=== PATIENT | female | born 1975 | race Caucasian/White ===

== ENCOUNTER 2017-07-01 10:20 | Emergency (ER) | payer OTHER ==
[2017-07-01 11:31] VITALS: BP 148/86
--- NOTE | 2017-07-01 11:45 | UC ---
Throat Pain/Nasal Gabriele HPI - HPI Summary HPI Summary: Nasal congestion and pressure for two days. No fever. No prior sinus disease. - History of Current Complaint Chief Complaint: UCRespiratory Stated Complaint: SINUS Time Seen by Provider: 07/01/17 11:24 Hx Obtained From: Patient Hx Last Menstrual Period: 06/21/17 Onset/Duration: Gradual Onset, Lasting Days, Still Present Pain Intensity: 5 Cough: Nonproductive Associated Signs & Symptoms: Positive: Sinus Discomfort, Nasal Discharge. Negative: Dysphagia, Fever, Vomiting, Rash - Allergies/Home Medications Allergies/Adverse Reactions: Allergies Allergy/AdvReac Type Severity Reaction Status Date / Time Amoxicillin [From Augmentin] Allergy Hives Verified 07/01/17 11:27 Cephalexin [From Keflex] Allergy Hives Verified 07/01/17 11:27 Clavulanic Acid Allergy Hives Verified 07/01/17 11:27 [From Augmentin] Morphine Allergy Hallucinati Verified 07/01/17 11:27 ons Home Medications: Home Medications Citalopram TAB* [CeleXA TAB*] 40 mg PO DAILY 07/01/17 [History Confirmed ] PMH/Surg Hx/FS Hx/Imm Hx Previously Healthy: Yes - Surgical History Surgical History: Yes Surgery Procedure, Year, and Place: . lithotripsy - Family History Known Family History: Positive: Other - No related sinus family history. - Social History Alcohol Use: Rare Substance Use Type: None Smoking Status (MU): Never Smoked Tobacco Review of Systems ENT: Sinus Congestion All Other Systems Reviewed And Are Negative: Yes Physical Exam Triage Information Reviewed: Yes Appearance: Well-Appearing, No Pain Distress, Obese Vital Signs: Initial Vital Signs Temp 97.8 F 07/01/17 11:28 Pulse 80 07/01/17 11:28 Resp 18 07/01/17 11:28 BP 148/86 07/01/17 11:28 Pulse Ox 100 07/01/17 11:28 Vital Signs Reviewed: Yes Eyes: Positive: Conjunctiva Clear ENT: Positive: Pharynx normal, Nasal congestion, TMs normal, Uvula midline. Negative: TM dull, TM red, Tonsillar swelling, Tonsillar exudate, Trismus, Sinus tenderness Neck: Positive: Supple, Nontender, No Lymphadenopathy Respiratory: Positive: Lungs clear, Normal breath sounds, No respiratory distress, No accessory muscle use. Negative: Respiratory distress, Decreased breath sounds, Accessory muscle use, Crackles, Rhonchi, Stridor, Wheezing Cardiovascular: Positive: No Murmur, Pulses Normal Abdomen Description: Positive: Nontender, No Organomegaly, Soft. Negative: Distended, Guarding Musculoskeletal: Positive: Strength Intact, ROM Intact. Negative: No Edema Neurological: Positive: Alert, Muscle Tone Normal. Negative: Fatigued Psychological: Positive: Age Appropriate Behavior Skin: Negative: rashes Throat Pain/Nasal Course/Dx - Differential Dx/Diagnosis Provider Diagnoses: nasal viral rhinosinusitis. Discharge - Discharge Plan Condition: Good Disposition: HOME Prescriptions: DOXYcycline CAP(*) [DOXYcycline 100MG CAP(*)] 100 mg PO BID #20 cap Patient Education Materials: Sinusitis (ED) Referrals: Sandy Ogden MD [Primary Care Provider] - Additional Instructions: Focus on decongestants and sinus irrigation. If not better by day 10 then start antibiotic.
== END 2017-07-01 11:43 | disposition home or self-care (01) ==
LOC: UCCORT 10:20
DX: J32.8 Other chronic sinusitis (principal); E66.9 Obesity, unspecified; Z88.1 Allergy status to other antibiotic agents; Z88.5 Allergy status to narcotic agent
CPT/HCPCS: 99202; G0463

== ENCOUNTER 2018-03-31 11:02 | Emergency (ER) | payer OTHER ==
[2018-03-31 11:32] VITALS: BP 157/87
[2018-03-31] MEDS ORDERED: Ketorolac INJ* 60 MG/2 ML VIAL IM ONE (11:55)
--- NOTE | 2018-03-31 12:04 | UC ---
Back Pain HPI - HPI Summary HPI Summary: Pt presents with c/o of low back pain. Pt reports that she was lifting her 30lb child out of car seat yesterday and felt sudden onset of low back pain at ~ 10 am. Pt stated that she rested the rest of the day and took , flexeril and ibuprofen with no improvement - History of Current Complaint Chief Complaint: UCBackPain Stated Complaint: LOWER BACK PAIN Time Seen by Provider: 03/31/18 11:39 Hx Obtained From: Patient Hx Last Menstrual Period: 03/21/18 ?: No Onset/Duration: Sudden Onset, Lasting Hours Timing: Constant Severity Initially: Moderate Severity Currently: Moderate Pain Intensity: 8 Character: Dull, Aching, Stiffness Aggravating Factor(s): Movement Alleviating Factor(s): Rest, Position Associated Signs And Symptoms: Positive: Negative - Risk Factors AAA Risk Factors: Negative TAD Risk Factors: Negative Cauda Equina Risk Factors: Negative Epidural Abscess Risk Factors: Negative - Allergies/Home Medications Allergies/Adverse Reactions: Allergies Allergy/AdvReac Type Severity Reaction Status Date / Time amoxicillin [From Augmentin] Allergy Hives Verified 03/31/18 11:35 cephalexin [From Keflex] Allergy Hives Verified 03/31/18 11:35 clavulanic acid Allergy Hives Verified 03/31/18 11:35 [From Augmentin] morphine Allergy Hallucinati Verified 03/31/18 11:35 ons PMH/Surg Hx/FS Hx/Imm Hx Previously Healthy: Yes - Surgical History Surgical History: Yes Surgery Procedure, Year, and Place: lithotrypsy, 3x c-sections - Family History Known Family History: Positive: Cardiac Disease, Other - No related sinus family history. - Social History Occupation: Employed Full-time Lives: With Family Alcohol Use: Rare Substance Use Type: None Smoking Status (MU): Never Smoked Tobacco Have You Smoked in the Last Year: No - Immunization History Most Recent Influenza Vaccination: current Review of Systems Constitutional: Negative Skin: Negative Eyes: Negative ENT: Negative Respiratory: Negative Cardiovascular: Negative Gastrointestinal: Negative Genitourinary: Negative Motor: Decreased ROM - low back Neurovascular: Negative Musculoskeletal: Decreased ROM, Myalgia - low back Neurological: Negative Psychological: Negative Is Patient Immunocompromised?: No All Other Systems Reviewed And Are Negative: Yes Physical Exam Triage Information Reviewed: Yes Appearance: Pain Distress Vital Signs: Initial Vital Signs Temp 97.6 F 10/28/18 11:27 Pulse 69 03/31/18 11:27 Resp 16 03/31/18 11:27 BP 157/87 03/31/18 11:27 Pulse Ox 99 03/31/18 11:27 Vital Signs Reviewed: Yes Eye Exam: Normal ENT Exam: Normal Dental Exam: Normal Neck exam: Normal Respiratory Exam: Normal Cardiovascular Exam: Normal Musculoskeletal Exam: Normal Musculoskeletal: Positive: Strength Intact, ROM Intact, No Edema Neurological Exam: Normal Psychological Exam: Normal Skin Exam: Normal Back Pain Course/Dx - Course Course Of Treatment: pt was given 60 MG IM toradol at clinic and after 30 minutes pt repoted improvement of pain. I instructed the pt to not take another NSAID until at least 8 hours. Pt verbalized understanding and agreed to plan of care - Differential Dx/Diagnosis Differential Diagnosis/HQI/PQRI: Cauda Equina Syndrome, Herniated Disc, Strain Provider Diagnoses: low back strain Discharge - Sign-Out/Discharge Documenting (check all that apply): Patient Departure All imaging exams completed and their final reports reviewed: No Studies - Discharge Plan Condition: Stable Disposition: HOME Prescriptions: Cyclobenzaprine TAB* [Flexeril 10 MG TAB*] 10 mg PO TID PRN #21 tab PRN Reason: Pain predniSONE TAB* [Deltasone 20 MG TAB*] 20 mg PO DAILY #4 tab Patient Education Materials: Low Back Strain (ED), Acute Low Back Pain (ED), Lower Back Exercises (ED) Referrals: Sandy Ogden MD [Primary Care Provider] - If Needed - Billing Disposition and Condition Condition: STABLE Disposition: Home
== END 2018-03-31 12:37 | disposition home or self-care (01) ==
LOC: UCCORT 11:02
DX: S39.012A Strain of muscle, fascia and tendon of lower back, initial encounter (principal); Z88.0 Allergy status to penicillin; Z88.1 Allergy status to other antibiotic agents; Z88.5 Allergy status to narcotic agent; X50.9XXA Other and unspecified overexertion or strenuous movements or postures, initial encounter; Y92.9 Unspecified place or not applicable
CPT/HCPCS: 96372; 99212; G0463; J1885

== ENCOUNTER 2019-04-22 11:42 | Emergency (ER) | payer OTHER ==
--- OUTSIDE RECORDS SUMMARY | 2019-04-22 12:33 | XMS REPORT | Continuity of Care Document ---
:1975 External Reference #:[id number] Author Name Alix Bowen PA Address [address] [place] [address] Care Team Providers Name Role Phone Sandy Ogden MD - Internal Medicine Care Team Information Cold Mill Operator Courtney Tavera PA-C - Care Team Information Cold Mill Operator [phone] Physician Tow Motor Driver Problems Active Problems Provider Date Taking medication Babatunde Bauman M.D. Onset: 07/09/2017 Acute sinusitis Babatunde Bauman M.D. Onset: 07/09/2017 Acute bronchitis Babatunde Bauman M.D. Onset: 07/09/2017 Malaise and fatigue Babatunde Bauman M.D. Onset: 07/09/2017 Cough Babatunde Bauman M.D. Onset: 07/09/2017 Vitamin D deficiency Babatunde Bauman M.D. Onset: 07/23/2017 Difficulty breathing Babatunde Bauman M.D. Onset: 07/23/2017 Elevated blood-pressure reading Babatunde Bauman M.D. Onset: 10/05/2017 without diagnosis of hypertension Obstructive sleep apnea syndrome Babatunde Bauman M.D. Onset: 10/05/2017 Hyperlipidemia Babatunde Bauman M.D. Onset: 10/05/2017 Erythematous condition Babatunde Bauman M.D. Onset: 12/27/2017 Contact dermatitis Babatunde Bauman M.D. 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/2018 Rasheeda Blood coagulation disorder, Brandon Wu, Onset: 05/23/2018 categorized by value of screening M.DCat test Imaging of abdomen abnormal Avril SotomayortDO Onset: 06/12/2018 Generalized anxiety disorder Sandy Ogden MD Onset: 12/12/2018 Mild recurrent major depression Sandy Ogden MD Onset: 12/12/2018 Pure hyperglyceridemia Sandy Ogden MD Onset: 12/12/2018 Mixed hyperlipidemia Sandy Ogden MD Onset: 12/12/2018 Social History Type Date Description Comments Sex Unknown Tobacco Use Start: Unknown Never Smoked Cigarettes Smoking Status Reviewed: 03/31/19 Never Smoked Cigarettes ETOH Use Rarely consumes alcohol Tobacco Use Start: Unknown Patient has never smoked Allergies, Adverse Reactions, Alerts Active Allergies Reaction Severity Comments Date Butorphanol 03/06/2014 Augmentin hives 07/05/2016 Clavulanic Acid Hives 07/01/2017 Keflex hives 07/05/2016 Morphine halllucinations 07/05/2016 Stadol hallucinations 07/05/2016 Medications Active Medications SIG Qnty Indications Ordering Date Provider Prednisone 2 po daily 10tabs R51 Waylon, 03/31/2019 20mg Tablets MD Katya, PHD Alprazolam 1 by mouth three 30tabs Jennifer Obregon, 01/24/2019 0.25mg Tablets times a day as DIRECTOR OF STRATEGIC SOURCING needed for panic attack, mdd 3#, Reference #: [id number] Hydrocortisone Apply to abdomen 28.350gm L23.9 Sandy Ogden, 01/24/2019 1% Cream 2-3x a day Duloxetine HCL 1 by mouth daily 30caps F33.0 Waylon, 01/10/2019 20mg Caps MD Katya, DR Part PHD Vitamin D-3 1 by mouth every Unknown 1000Unit day Capsules Omeprazole 1 by mouth every Unknown 40mg Capsules day DR History Medications Buspirone HCL 1-2 po tid prn 30tabs Sandy Ogden MD 01/10/2019 - 5mg Tablets anxiety 01/24/2019 Citalopram Hydrobromide 1 tab by mouth 30tabs Sandy Ogden MD 2018 - every day 12/12/2018 10mg Tablets Bupropion Hydrochloride take 1 tablet by 30tabs Sandy Ogden MD 2018 - ER (XL) mouth every 10/17/2018 150mg Tablets ER morning 24HR Medications Administered in Office Medication SIG Qnty Indications Ordering Provider Date PPD Injection Family Nurse 01/21/2019 Immunizations Description No Information Available Vital Signs Date Vital Result Comment 03/31/2019 11:18am BP Systolic Sitting Right Arm 140 mmHg BP Diastolic Sitting Right Arm 88 mmHg Body Temperature 98.2 F Heart Rate 85 /min Respiratory Rate 18 /min Height 65 inches 5'5" Weight 236.00 lb BMI (Body Mass Index) 39.3 kg/m2 BSA (Body Surface Area) 2.12 m2 [place] body weight in kilograms 57 kg O2 % BldC Oximetry 97 % 01/24/2019 11:00am BP Systolic Sitting Left Arm 122 mmHg BP Diastolic Sitting Left Arm 64 mmHg Body Temperature 97.9 F Heart Rate 75 /min Respiratory Rate 18 /min Height 65 inches 5'5" Weight 230.00 lb BMI (Body Mass Index) 38.3 kg/m2 BSA (Body Surface Area) 2.10 m2 [place] body weight in kilograms 57 kg O2 % BldC Oximetry 98 % Results Test Date Facility Test Result H/L Range Note Platelet Count 01/17/2019 [facility] Platelet Count 221 10^3/uL Normal 150-450 [phone] Mean Platelet Volume 10.3 fL Normal 7.4-10.4 Inr/Protime 01/17/2019 [facility] Inr 0.99 Normal 0.82-1.09 5 [phone] Laboratory test 01/17/2019 [facility] Partial 32.2 Normal 26.0-38.0 finding [phone] Thrombo seconds Time PTT Ua RFX Micro & 12/16/2018 [facility] Urine Color YELLOW Yellow 2 Culture II [address] [place], [place] [id number] [phone] Urine Clarity CLEAR Clear Urine Glucose - Dipstick NEGATIVE mg/dL Negative Urine Bilirubin - Dipstick NEGATIVE Negative Urine Ketone NEGATIVE mg/dL Negative Urine Specific [place] <= 1.005 Low 1.010-1.030 Urine Blood NEGATIVE Negative Urine PH 6.0 Low 6.5-7.5 Urine Protein - Dipstick NEGATIVE mg/dL Negative Urine Urobilinogen - Dipstick 0.2 E.U./dL Normal 0.2-1.0 Urine Nitrite - Dipstick NEGATIVE Negative Urine Leuk Esterase NEGATIVE Negative Source: URINE, CLEAN CAT <SEE NOTE> 3 Urine Culture 12/16/2018 [facility] Urine Culture URETHRAL ANUSHKA [address] [place], [place] [id number] [phone] Quantity > 100,000 CFU/mL 4 LDL Cholesterol 12/10/2018 [facility] Cholesterol 166 mg/dL <200 5, 6 Profile [address] [place], [place] [id number] [phone] Triglycerides 236 mg/dL High <150 7 HDL Cholesterol 41 mg/dL >40 8 LDL-Cholesterol 78 mg/dL < 100 9 1 Standard intensity warfarin therapeutic range: 2.0-3.0 High intensity warfarin therapeutic range: 2.5-3.5 2 N23 3 URINE, CLEAN CATCH 4 > 100,000 CFU/mL 5 R19.7, E78.5 6 Reference Guidelines*: Desirable: ........... < 200 mg/dL Borderline High: ..... 200-239 mg/dL High: ................ >= 240 mg/dL * The National Cholesterol Education Program (NCEP) 7 Reference Guidelines*: Normal: ............. < 150 mg/dL Borderline High: .... 150-199 mg/dL High: ............... 200-499 mg/dL Very High: .......... > 500 mg/dL * Source: National Cholesterol Education Program (NCEP) 8 Reference Guidelines*: Low HDL: ..... < 40 mg/dL Normal: ..... 40-60 mg/dL Desirable: ... > 60 mg/dL *The National Cholesterol Education Program(NCEP) 9 Reference Guidelines*: Optimal:........... <100 mg/dL Near Optimal....... 100-129 mg/dL Borderline High.... 130-159 mg/dL High............... 160-189 mg/dL Very High.......... >=190 mg/dL * Source: National Cholesterol Education Program (NCEP) Procedures Date Code Description Status 02/11/2019 16393 Eye Exam Est Patient Comprehensive Completed 10/08/2018 57841 Brief Emotional/Behav Assessment W/ Scoring Doc Per Completed Standard Inst 06/04/2018 48424912 Mammogram Completed Medical Devices Description No Information Available Encounters Type Date Location Provider Dx Diagnosis Office Visit 03/31/2019 Primary Care Alix Bowen F41.9 Anxiety disorder, 11:15a Office H., PA unspecified R51 Headache Office Visit 01/24/2019 11:00a Primary Care Alix Bowen F43.0 Acute stress Office H., PA reaction L23.9 Allergic contact dermatitis, unspecified cause Z11.1 Encounter for screening for respiratory tuberculosis Office Visit 01/10/2019 3:15p Primary Care Jessi F33.0 Major depressive Office KAJAL Bradshaw disorder, recurrent, mild F43.0 Acute stress reaction Office Visit 12/12/2018 3:20p Primary Care Sandy Ogden F41.1 Generalized Office anxiety disorder F33.0 Major depressive disorder, recurrent, mild E78.1 Pure hyperglyceridemia D73.89 Other diseases of spleen N23 Unspecified renal colic R19.7 Diarrhea, unspecified R16.0 Hepatomegaly, not elsewhere classified K21.9 Gastro-esophageal reflux disease without esophagitis Office Visit 10/08/2018 2:40p Primary Care Sandy Ogden F41.1 Generalized Office anxiety disorder F33.0 Major depressive disorder, recurrent, mild D73.89 Other diseases of spleen E78.5 Hyperlipidemia, unspecified Assessments Date Code Description Provider 03/31/2019 F41.9 Anxiety disorder, unspecified Alix Bowen PA 03/31/2019 R51 Headache Alix Bowen, PA 02/11/2019 H52.4 Presbyopia Cody Oconnor MD 01/24/2019 F43.0 Acute stress reaction Alix Bowen, PA 01/24/2019 L23.9 Allergic contact dermatitis, unspecified Alix Bowen., PA cause 01/24/2019 Z11.1 Encounter for screening for respiratory Alix Bowen PA tuberculosis 01/21/2019 Z11.1 Encounter for screening for respiratory Zita Diallo MD tuberculosis 01/21/2019 Z11.1 Encounter for screening for respiratory Family Nurse tuberculosis 01/10/2019 F33.0 Major depressive disorder, recurrent, mild Alix Bowen PA 01/10/2019 F43.0 Acute stress reaction Alix Bowen PA 12/12/2018 F41.1 Generalized anxiety disorder Sandy Ogden MD 12/12/2018 F33.0 Major depressive disorder, recurrent, mild Sandy Ogden MD 12/12/2018 E78.1 Pure hyperglyceridemia Sandy Ogden MD 12/12/2018 D73.89 Other diseases of spleen Sandy Ogden MD 12/12/2018 N23 Unspecified renal colic Sandy Ogden MD 12/12/2018 R19.7 Diarrhea, unspecified Sandy Ogden MD 12/12/2018 R16.0 Hepatomegaly, not elsewhere classified Sandy Ogden MD 12/12/2018 K21.9 Gastro-esophageal reflux disease without Sandy Ogden MD esophagitis 10/08/2018 F41.1 Generalized anxiety disorder Sandy Ogden MD 10/08/2018 F33.0 Major depressive disorder, recurrent, mild Sandy Ogden MD 10/08/2018 D73.89 Other diseases of spleen Sandy Ogden MD 10/08/2018 E78.5 Hyperlipidemia, unspecified Sandy Ogden MD Plan of Treatment 02/11/2019 - Cody Oconnor MDH52.4 PresbyopiaComments:provided reading glasses+ 1.00 sph right eye+1.25 sph left eyeFollow up:please call with ? or concerns Functional Status Functional Condition Comment Date Status Independent with all ADL's Active Mental Status Description No Information Available Referrals Description No Information Available
[2019-04-22 12:41] VITALS: BP 133/75
--- NOTE | 2019-04-22 13:13 | UC ---
Throat Pain/Nasal Gabriele HPI - HPI Summary HPI Summary: Pt presents with c/o nasal congestion, sinus pressure pain X 1 week. - History of Current Complaint Chief Complaint: UCGeneralIllness Stated Complaint: SINUS COMPLAINT Time Seen by Provider: 04/22/19 13:07 Hx Obtained From: Patient Hx Last Menstrual Period: 04/13/19 ?: No Onset/Duration: Sudden Onset, Lasting Days, Still Present Severity: Moderate Pain Intensity: 7 Associated Signs & Symptoms: Positive: Sinus Discomfort, Nasal Discharge - Epiglottits Risk Factors Epiglottis Risk Factors: Negative - Allergies/Home Medications Allergies/Adverse Reactions: Allergies Allergy/AdvReac Type Severity Reaction Status Date / Time amoxicillin [From Augmentin] Allergy Hives Verified 04/22/19 12:34 cephalexin [From Keflex] Allergy Hives Verified 04/22/19 12:34 clavulanic acid Allergy Hives Verified 04/22/19 12:34 [From Augmentin] morphine Allergy Hallucinati Verified 04/22/19 12:34 ons Home Medications: Home Medications DULoxetine DR CAP* [Cymbalta CAP*] 30 mg PO DAILY 04/22/19 [History Confirmed ] PMH/Surg Hx/FS Hx/Imm Hx Previously Healthy: Yes - Surgical History Surgical History: Yes Surgery Procedure, Year, and Place: lithotrypsy, 3 x c-sections - Family History Known Family History: Positive: Cardiac Disease, Other - No related sinus family history. - Social History Occupation: Employed Full-time Lives: With Family Alcohol Use: Rare Substance Use Type: None Smoking Status (MU): Never Smoked Tobacco Have You Smoked in the Last Year: No - Immunization History Most Recent Influenza Vaccination: current Vaccination Up to Date: Yes Review of Systems All Other Systems Reviewed And Are Negative: Yes Constitutional: Positive: Chills, Fatigue Skin: Positive: Negative Eyes: Positive: Negative ENT: Positive: Sinus Congestion, Sinus Pain/Tenderness Respiratory: Positive: Cough Cardiovascular: Positive: Negative Gastrointestinal: Positive: Negative Genitourinary: Positive: Negative Motor: Positive: Negative Neurovascular: Positive: Negative Musculoskeletal: Positive: Negative Neurological: Positive: Negative Psychological: Positive: Negative Is Patient Immunocompromised?: No Physical Exam Triage Information Reviewed: Yes Appearance: Ill-Appearing Vital Signs: Initial Vital Signs Temp 97.9 F 04/22/19 12:35 Pulse 86 04/22/19 12:35 Resp 18 04/22/19 12:35 BP 133/75 04/22/19 12:35 Pulse Ox 98 04/22/19 12:35 Vital Signs Reviewed: Yes Eye Exam: Normal ENT: Positive: Nasal congestion, Sinus tenderness Dental Exam: Normal Neck exam: Normal Respiratory Exam: Normal Cardiovascular Exam: Normal Musculoskeletal Exam: Normal Neurological Exam: Normal Psychological Exam: Normal Skin Exam: Normal Throat Pain/Nasal Course/Dx - Differential Dx/Diagnosis Differential Diagnosis/HQI/PQRI: Influenza, Sinusitis, URI Provider Diagnosis: Sinusitis Discharge ED - Sign-Out/Discharge Documenting (check all that apply): Patient Departure All imaging exams completed and their final reports reviewed: No Studies - Discharge Plan Condition: Stable Disposition: HOME Prescriptions: Azithromycin TAB* [Zithromax TAB (Z-DARI) 250 mg #6 tabs] 2 tab PO .TODAY, THEN 1 DAILY #1 dari Patient Education Materials: Sinusitis (ED) Referrals: Sandy Ogden MD [Primary Care Provider] - If Needed - Billing Disposition and Condition Condition: STABLE Disposition: Home
== END 2019-04-22 13:18 | disposition home or self-care (01) ==
LOC: UCCORT 11:42
DX: J32.9 Chronic sinusitis, unspecified (principal); R53.83 Other fatigue; R68.83 Chills (without fever); R05 Cough; Z88.0 Allergy status to penicillin; Z88.1 Allergy status to other antibiotic agents; Z88.5 Allergy status to narcotic agent
CPT/HCPCS: 99212; G0463